=== PATIENT | male | born 1960 | race Caucasian/White ===

== ENCOUNTER 2017-11-10 07:54 | Emergency (ER) | payer OTHER ==
[2017-11-10] MEDS ORDERED: Sodium Chloride 0.9% 10 ML Syringe FLUSH PRN (08:13)
[2017-11-10 08:15] VITALS: BP 122/79
[2017-11-10] MEDS ORDERED: Dexamethasone 4 MG/ML SDV IVPUSH ONE (08:15)
--- NOTE | 2017-11-10 09:00 | EDM.PDOC ---
<Hill Moreno - Last Filed: 11/10/17 09:11> ED HPI GENERAL MEDICAL PROBLEM - General Chief Complaint: Back Pain or Injury Stated Complaint: LOW BACK PAIN, UNABLE TO BARE WEIGHT Time Seen by Provider: 11/10/17 08:15 Source of Information: Reports: Patient, Family (, carolynn TINOCO)), Old Records, RN, RN Notes Reviewed History Limitations: Reports: No Limitations - History of Present Illness INITIAL COMMENTS - FREE TEXT/NARRATIVE: Arrives from home by POV with c/o onset of low back pain 2 or 3 weeks ago without any particular injury, activity, or cause. Approximately 3 days ago the low back pain suddenly increased, and he developed severe pain and spasms. Last night his legs became weak and he could not stand or walk. Denies radiating pain to the lower extremities, but has weakness. Denies saddle area numbness, tingling, or loss of bowel or bladder control. Onset: Gradual Duration: Constant, Getting Worse Location: Reports: Back Quality: Reports: Ache, Sharp, Other (spasms) Severity: Severe Improves with: Reports: None Worsens with: Reports: Movement Associated Symptoms: Reports: No Other Symptoms Treatments [employer]: Reports: Other Medication(s) Bilateral Lower Back Pain Score (Numeric/FACES): 10 - Related Data Allergies Allergy/AdvReac Type Severity Reaction Status Date / Time No Known Allergies Allergy Verified 11/10/17 08:10 Home Meds: Home Meds Aspirin [Mclean Aspirin] 81 mg PO ASDIRECTED 10/20/13 [History] Clopidogrel [Plavix] 75 mg PO ASDIRECTED 10/20/13 [History] Isosorbide Mononitrate [Imdur] 60 mg PO DAILY 10/20/13 [History] Metoprolol Tartrate [Lopressor] 12.5 mg PO BID 10/20/13 [History] Montelukast [Singulair] 10 mg PO DAILY PRN 10/20/13 [History] Nitroglycerin [Nitrostat] 0.4 mg SL ASDIRECTED 10/20/13 [History] Omeprazole [Prilosec] 20 mg PO ASDIRECTED 10/20/13 [History] Simvastatin [Zocor] 40 mg PO BEDTIME 10/20/13 [History] Past Medical History HEENT History: Reports: Impaired Vision Other HEENT History: glasses Cardiovascular History: Reports: High Cholesterol, Hypertension, Stents - Past Surgical History GI Surgical History: Reports: Appendectomy Musculoskeletal Surgical History: Reports: Other (See Below) Other Musculoskeletal Surgeries/Procedures:: amp four right hand Social & Family History - Family History Family Medical History: Noncontributory - Tobacco Use Smoking Status *Q: Never Smoker Second Hand Smoke Exposure: No - Caffeine Use Caffeine Use: Reports: Coffee - Recreational Drug Use Recreational Drug Use: No - Living Situation & Occupation Living situation: Reports: , with Spouse Occupation: Other (farrar) ED ROS GENERAL - Review of Systems Review Of Systems: ROS reveals no pertinent complaints other than HPI. ED EXAM,LOWER BACK PAIN/INJURY - Physical Exam Exam: See Below Exam Limited By: No Limitations General Appearance: Alert, WD/WN, No Apparent Distress Throat/Mouth: Normal Voice, No Airway Compromise Head: Atraumatic, Normocephalic Neck: Normal Inspection, Full Range of Motion Respiratory/Chest: No Respiratory Distress, Lungs Clear, Normal Breath Sounds, No Accessory Muscle Use, Chest Non-Tender Cardiovascular: Regular Rate, Rhythm GI/Abdominal: Normal Bowel Sounds, Soft, Non-Tender, No Organomegaly, No Distention, No Abnormal Bruit (Male) Exam: Deferred Rectal (Males) Exam: Deferred Back Exam: Decreased Range of Motion (lumbar, L/S region), Muscle Spasm, Paraspinal Tenderness. No: CVA Tenderness (L), CVA Tenderness (R), Vertebral Tenderness Extremities: Normal Inspection, Normal Range of Motion, Non-Tender, No Pedal Edema, Normal Capillary Refill Neurological: Alert, Normal Mood/Affect, Normal Dorsiflexion, CN II-XII Intact, Normal Plantar Flexion, Normal Reflexes, Oriented x 3, Abnormal Motor (B/L lower ext. generalized weakness, poss. due to pain.). No: Saddle Anesthesia Psychiatric: Normal Affect, Normal Mood Skin Exam: Warm, Dry, Intact, Normal Color, No Rash Course - Vital Signs Last Recorded V/S: Last Vital Signs Temp 98.1 F 11/10/17 08:12 Pulse 72 11/10/17 08:12 Resp 16 11/10/17 08:12 BP 122/79 11/10/17 08:12 Pulse Ox 95 11/10/17 08:12 - Orders/Labs/Meds Orders: Active Orders 24 hr Category Date Time Status Peripheral IV Care [RC] . DIRECTED Care 11/10/17 08:14 Active Lumbar Spine Comp wo Cont [MR] Stat Exams 11/10/17 08:20 Taken UA W/MICROSCOPIC [URIN] Stat Lab 11/10/17 08:14 Ordered Sodium Chloride 0.9% [Saline Flush] Med 11/10/17 08:13 Active 10 ml FLUSH ASDIRECTED PRN Peripheral IV Insertion Adult [OM.PC] Stat Oth 11/10/17 08:13 Ordered Medication Orders Sodium Chloride (Saline Flush) 10 ml FLUSH ASDIRECTED PRN PRN Reason: Keep Vein Open Last Admin: 11/10/17 08:30 Dose: 10 ml Meds: Medications Generic Name Dose Route Start Last Admin Trade Name Freq PRN Reason Stop Dose Admin Sodium Chloride 10 ml 11/10/17 08:13 11/10/17 08:30 Saline Flush FLUSH 10 ml ASDIRECTED PRN Administration Keep Vein Open Discontinued Medications Generic Name Dose Route Start Last Admin Trade Name Freq PRN Reason Stop Dose Admin Dexamethasone 10 mg 11/10/17 08:15 11/10/17 08:31 Dexamethasone IVPUSH 11/10/17 08:16 10 mg ONETIME ONE Administration Diazepam 5 mg 11/10/17 08:15 11/10/17 08:29 Valium IVPUSH 11/10/17 08:16 5 mg ONETIME ONE Administration - Radiology Interpretation Free Text/Narrative:: MRI L-Spine: Departure - Departure Disposition: Home, Self-Care 01 Clinical Impression: Lumbar radicular pain, Lumbar degenerative disc disease, Lumbar paraspinal muscle spasm - Discharge Information Instructions: Muscle Cramps and Spasms, [id number], Muscle Strain, Easy-to- Read, Back Pain, Adult, [id number], Lumbosacral Radiculopathy Forms: ED Department Discharge Additional Instructions: RX: Diazepam, Decadron Do NOT drive or work while under the influence of the Diazepam Rest, heat and ice Follow up with your primary care facility <Zuleima Aldrich - Last Filed: 11/10/17 10:04> Course - Radiology Interpretation Free Text/Narrative:: See Rad report on MRI L-Spine when available Verbal report from Dr. Hess was degenerative disc disease, no acute findings at this time. Departure - Departure Time of Disposition: 09:54 Condition: Fair
== END 2017-11-10 10:00 | disposition home or self-care (01) ==
LOC: DL.ED 07:54
DX: M51.36 Other intervertebral disc degeneration, lumbar region (principal); I10 Essential (primary) hypertension
CPT/HCPCS: 72148; 96374; 96375; 99284; J1100; J3360; J7050